=== PATIENT | female | born 1955 | race Caucasian/White ===

== ENCOUNTER 2018-11-18 14:29 | Emergency (ER) | payer OTHER ==
[2018-11-18] MEDS ORDERED: ASPIR 8181 MG (19:32)
[2018-11-18] MEDS ORDERED: LOSARTAN POTASS1 TA6 PO (19:32)
== END 2018-11-18 15:14 | disposition left against medical advice (07) ==
LOC: ED 14:29
DX: Z53.21 Procedure and treatment not carried out due to patient leaving prior to being seen by health care provider (principal)

== ENCOUNTER 2018-11-18 15:52 | Observation (INO) | payer OTHER ==
[~2018-11-18] VITALS: Ht 167.6 cm; Wt 71.9 kg
[2018-11-18 16:50] LABS: CALCIUM 9.7 mg/dL (8.5-10.1); CARBON DIOXIDE 29.7 mmol/L (21-32); CHLORIDE SERUM 100 mmol/L (98-107); CREATININE SERUM 0.9 mg/dL (0.6-1.0); GFR1 > 60 mL/min; GLUCOSE SERUM 116 mg/dL (74-106); POTASSIUM SERUM 3.1 mmol/L (3.5-5.1); SODIUM SERUM 138 mmol/L (136-145)
[2018-11-18 16:58] LABS: ALBUMIN 3.9 g/dL (3.4-5.0); ALKALINE PHOSPHATASE 54 U/L (46-116); ALT/SGPT 33 U/L (14-59); AST/SGOT 17 U/L (15-37); BILIRUBIN TOTAL 0.44 mg/dL (0.20-1.00); TOTAL PROTEIN, SERUM 7.3 g/dL (6.4-8.2)
[2018-11-18 17:03] LABS: BASOPHIL % 0.4 % (0-2); PLATELET COUNT 278 x10^3mcL (130-400); RED CELL DISTRIBUTION WIDTH 13.3 % (11.5-14.5)
[2018-11-18] MEDS ORDERED: ASPIR 8181 MG (19:32)
[2018-11-18] MEDS ORDERED: LOSARTAN POTASS1 TA6 PO (19:32)
[2018-11-18 19:53] VITALS: BP 163/78
[2018-11-18 19:56] LABS: AMPHETAMINE QUAL UR NONE DETECTED (See below)
[2018-11-18 22:11] VITALS: BP 138/70
[2018-11-19 05:15] VITALS: BP 119/60
[2018-11-19 07:51] LABS: CALCIUM 9.3 mg/dL (8.5-10.1); CARBON DIOXIDE 29.2 mmol/L (21-32); CHLORIDE SERUM 103 mmol/L (98-107); CREATININE SERUM 0.8 mg/dL (0.6-1.0); GFR1 > 60 mL/min; GLUCOSE SERUM 86 mg/dL (74-106); MAGNESIUM 2.1 mg/dL (1.8-2.4); SODIUM SERUM 140 mmol/L (136-145)
[2018-11-19 08:02] VITALS: BP 117/65
[2018-11-19 11:41] VITALS: BP 139/69
[2018-11-19 18:01] VITALS: BP 125/70
[2018-11-20 06:18] VITALS: BP 119/67
[2018-11-20 06:45] LABS: BASOPHIL % 0.6 % (0-2); PLATELET COUNT 267 x10^3mcL (130-400); RED CELL DISTRIBUTION WIDTH 13.5 % (11.5-14.5)
[2018-11-20 07:10] LABS: ALBUMIN 3.3 g/dL (3.4-5.0); ALKALINE PHOSPHATASE 51 U/L (46-116); ALT/SGPT 27 U/L (14-59); AST/SGOT 14 U/L (15-37); BILIRUBIN TOTAL 0.58 mg/dL (0.20-1.00); CALCIUM 9.5 mg/dL (8.5-10.1); CARBON DIOXIDE 29.4 mmol/L (21-32); CHLORIDE SERUM 103 mmol/L (98-107); CREATININE SERUM 0.9 mg/dL (0.6-1.0); GFR1 > 60 mL/min; GLUCOSE SERUM 99 mg/dL (74-106); MAGNESIUM 2.2 mg/dL (1.8-2.4); SODIUM SERUM 138 mmol/L (136-145); TOTAL PROTEIN, SERUM 6.7 g/dL (6.4-8.2)
[2018-11-20 09:32] VITALS: BP 109/55
[2018-11-20 11:08] VITALS: BP 109/55
[2018-11-28 17:06] LABS: CK-BB 0 % (0); CK-MB 0 % (0-3); MACRO TYPE 2 0 % (Not Observed)
[2018-11-28 17:06] LABS: CK-MB 0 % (0-3); CK-MM 56 % (97-100); MACRO TYPE 1 44 % (Not Observed); MACRO TYPE 2 0 % (Not Observed)
[2018-11-28 17:06] LABS: CK-BB 0 % (0); CK-MB 0 % (0-3); CK-MM 69 % (97-100); MACRO TYPE 1 31 % (Not Observed); MACRO TYPE 2 0 % (Not Observed)
[2018-11-29 12:47] LABS: CK-MM 59 % (97-100); MACRO TYPE 1 41 % (Not Observed)
[2018-11-29 12:47] LABS: CK-BB 0 % (0)
== END 2018-11-20 12:03 | disposition home or self-care (01) | DRG 305 ==
LOC: ED 15:52 → DU 18:54
PROVIDERS: Emergency Medicine; Internal Medicine Pulmonary Disease; ADMIT Internal Medicine Pulmonary Disease
DX: I16.0 Hypertensive urgency (principal); R07.89 Other chest pain; R00.2 Palpitations; Z79.82 Long term (current) use of aspirin
CPT/HCPCS: 83880; A9500; G0378; J1644; J2785; Q0092

== ENCOUNTER 2018-12-29 21:54 | Inpatient (IN) | payer OTHER ==
[~2018-12-29] VITALS: Ht 160 cm; Wt 77.3 kg
[~2018-12-29 21:54] MED LIST: ASPIR 8181 MG; LOSARTAN POTASS1 TA6 PO
[2018-12-29 22:00] VITALS: Ht 160 cm; Wt 77.3 kg
[2018-12-29 23:00] LABS: BASOPHIL % 0.6 % (0-2); PLATELET COUNT 195 x10^3mcL (130-400); RED CELL DISTRIBUTION WIDTH 13.7 % (11.5-14.5)
[2018-12-29 23:21] LABS: ALBUMIN 3.8 g/dL (3.4-5.0); ALKALINE PHOSPHATASE 53 U/L (46-116); ALT/SGPT 17 U/L (14-59); AST/SGOT 6 U/L (15-37); BILIRUBIN TOTAL 0.57 mg/dL (0.20-1.00); CALCIUM 9.8 mg/dL (8.5-10.1); CARBON DIOXIDE 27.7 mmol/L (21-32); CHLORIDE SERUM 103 mmol/L (98-107); CREATININE SERUM 0.9 mg/dL (0.6-1.0); FREE T4 1.09 ng/dL (0.76-1.46); GFR1 > 60 mL/min; GLUCOSE SERUM 153 mg/dL (74-106); LIPASE 107 IU/L (73-393); SODIUM SERUM 140 mmol/L (136-145); TOTAL PROTEIN, SERUM 7.1 g/dL (6.4-8.2)
[2018-12-29 23:22] LABS: microscopic required? NO
[2018-12-29 23:24] LABS: POTASSIUM SERUM 2.9 mmol/L (3.5-5.1)
[2018-12-29 23:31] LABS: urine erythrocyte NEGATIVE (NEGATIVE)
[2018-12-29 23:38] LABS: AMPHETAMINE QUAL UR NONE DETECTED (See below)
[2018-12-30 04:40] VITALS: BP 119/50
[2018-12-30 09:04] VITALS: BP 119/63
[2018-12-30 09:04] LABS: CALCIUM 9.9 mg/dL (8.5-10.1); CARBON DIOXIDE 30.1 mmol/L (21-32); CHLORIDE SERUM 103 mmol/L (98-107); CREATININE SERUM 0.8 mg/dL (0.6-1.0); GFR1 > 60 mL/min; GLUCOSE SERUM 119 mg/dL (74-106); MAGNESIUM 2.6 mg/dL (1.8-2.4); POTASSIUM SERUM 3.9 mmol/L (3.5-5.1); SODIUM SERUM 138 mmol/L (136-145)
[2018-12-30 12:40] LABS: CALCIUM 9.9 mg/dL (8.5-10.1); CARBON DIOXIDE 29.3 mmol/L (21-32); CHLORIDE SERUM 105 mmol/L (98-107); CREATININE SERUM 0.8 mg/dL (0.6-1.0); GFR1 > 60 mL/min; GLUCOSE SERUM 94 mg/dL (74-106); MAGNESIUM 2.4 mg/dL (1.8-2.4); POTASSIUM SERUM 3.7 mmol/L (3.5-5.1); SODIUM SERUM 140 mmol/L (136-145)
[2018-12-30 12:50] VITALS: BP 137/72
[2018-12-30] MEDS ORDERED: KLOR-CON 1010 MEQ PO (15:57)
[2018-12-30] MEDS ORDERED: COZ50 PO (15:57)
[2018-12-30] MEDS ORDERED: BAY PO (15:57)
== END 2018-12-30 16:47 | disposition home or self-care (01) | DRG 641 ==
LOC: ED 21:54 → DU 12-30 03:32
PROVIDERS: Emergency Medicine; Internal Medicine Pulmonary Disease; ADMIT Internal Medicine Pulmonary Disease
DX: E87.6 Hypokalemia (principal); R55 Syncope and collapse; I10 Essential (primary) hypertension; E86.9 Volume depletion, unspecified; Z90.710 Acquired absence of both cervix and uterus
CPT/HCPCS: 82962; 83880; 84439; J1885; J3475